=== PATIENT | female | born 1985 | race Two or more races ===

== ENCOUNTER 2022-06-06 12:24 | Emergency (ER) | payer SELFPAY ==
[~2022-06-06] VITALS: Ht 152.4 cm; Wt 70.0 kg
[2022-06-06 12:46] VITALS: BP 124/94
[2022-06-06 12:58] LABS: Basophils # (auto) 0 10 ^3/uL (0-0.2); Basophils % (auto) 0.7 % (0.0-2.0); Eosinophils # (auto) 0 10 ^3/uL (0-0.8); Eosinophils % (auto) 0.6 % (0.0-7.0); Hematocrit 44.5 % (36.0-46.0); Hemoglobin 14.6 g/dL (12.2-16.2); Lymphocytes # (auto) 1.8 10 ^3/uL (0.4-5.4); Lymphocytes % (auto) 29.9 % (10.0-50.0); Mean Corpuscular Hemoglobin 30.2 pg (28.0-32.0); Mean Corpuscular Hgb Conc. 32.9 g/dL (32.0-36.0); Mean Corpuscular Volume 91.9 fL (80.0-100.0); Monocytes # (auto) 0.4 10 ^3/uL (0-1.3); Monocytes % (auto) 5.8 % (0.0-12.0); Neutrophils # (auto) 3.9 10 ^3/uL (1.6-8.6); Red Blood Cells 4.84 10^6/uL (4.0-5.20); Red Cell Distribution Width 13.4 % (11.8-14.3); White Blood Cell 6.2 10^3/uL (4.4-10.8)
[2022-06-06 13:12] LABS: Albumin 3.5 g/dL (3.4-5.0); BUN/Creatinine Ratio 26.2; Calcium 8.7 mg/dL (8.5-10.1); Potassium 3.8 mmol/L (3.5-5.1)
[2022-06-06 13:15] LABS: Bilirubin, Total 0.3 mg/dL (0.2-1.0); Total Protein 7.4 g/dL (6.4-8.2)
[2022-06-06] MEDS ORDERED: LORazepam 2MG/ML-1ML VIAL IM ONE (14:00)
== END 2022-06-06 19:26 | disposition home or self-care (01) ==
LOC: ER 12:27
DX: F41.1 Generalized anxiety disorder (principal); R29.0 Tetany; R07.89 Other chest pain
CPT/HCPCS: 36415; 71046; 80053; 84484; 85025; 93005; 96372; 99285; J2060